=== PATIENT | female | born 1980 | race African-American/Black ===

== ENCOUNTER 2016-11-05 21:57 | Emergency (ER) | payer MEDICAID ==
[2016-11-06 01:14] LABS: APPEARANCE CLEAR (CLEAR); BILIRUBIN NEGATIVE (NEGATIVE); COLOR YELLOW (YELLOW); GLUCOSE NEGATIVE (NEGATIVE); KETONE NEGATIVE (NEGATIVE); LEUKOCYTE ESTERASE NEGATIVE (NEGATIVE); NITRITE NEGATIVE (NEGATIVE); PROTEIN NEGATIVE (NEGATIVE); UROBILINOGEN NORMAL (NORMAL)
[2016-11-06 01:15] LABS: BACTERIA FEW /hpf (NONE SEEN); EPITHELIAL CELLS 0-5 /hpf (0-5); RED CELLS - URINE 0-5 /hpf (0-5); WHITE CELLS - URINE NSEEN /hpf (0-5)
== END 2016-11-06 01:56 | disposition home or self-care (01) ==
LOC: D.ER 21:57
PROVIDERS: Family Medicine
DX: T19.2XXA Foreign body in vulva and vagina, initial encounter (principal); X58.XXXA Exposure to other specified factors, initial encounter; Y93.89 Activity, other specified; Y92.019 Unspecified place in single-family (private) house as the place of occurrence of the external cause; K58.9 Irritable bowel syndrome, unspecified; K21.9 Gastro-esophageal reflux disease without esophagitis; I10 Essential (primary) hypertension; F17.200 Nicotine dependence, unspecified, uncomplicated

== ENCOUNTER 2017-08-07 23:10 | Emergency (ER) | payer MEDICAID ==
[~2017-08-07] VITALS: Ht 167.6 cm; Wt 86.4 kg
[2017-08-07 23:26] VITALS: Ht 167.6 cm; Wt 86.4 kg
[2017-08-07] MEDS ORDERED: VENTOLIN HFA18 GM INH (23:28)
[2017-08-07] MEDS ORDERED: PROTONIX40 MG PO (23:28)
[2017-08-07] MEDS ORDERED: PREVACID30 MG PO (23:28)
[2017-08-07] MEDS ORDERED: ZYLOPRIM100 MG PO (23:28)
[2017-08-08 00:14] LABS: APPEARANCE HAZY (CLEAR); COLOR YELLOW (YELLOW); SPECIFIC GRAVITY 1.005 (1.005-1.020)
[2017-08-08 00:15] LABS: BILIRUBIN NEGATIVE (NEGATIVE); GLUCOSE NEGATIVE (NEGATIVE); HCG URINE NEGATIVE (NEGATIVE); KETONE NEGATIVE (NEGATIVE); NITRITE NEGATIVE (NEGATIVE); PH 5.5 (5.0-6.0); PROTEIN NEGATIVE (NEGATIVE); UROBILINOGEN NORMAL (NORMAL)
[2017-08-08 00:17] LABS: BASOPHILS 1.5 % (0-2); EOSINOPHILS 5.2 % (0-7); HEMATOCRIT 32.1 % (36.0-48.0); IMMATURE GRANULOCYTES 0.3 % (0-5); LYMPHOCYTES 37.5 % (15-50); MCH 28.2 pg (26.0-34.0); MCHC 31.2 g/dL (31.0-37.0); MCV 90.7 fL (80.0-100.0); MEAN PLATELET VOLUME 9.5 fL (7.4-10.4); MONOCYTES 9.1 % (2-11); NEUTROPHILS 46.4 % (40-80); PLATELET COUNT 332 10x3/uL (130-400); RBC 3.54 10x6/uL (4.00-5.40); RDW 17.7 % (11.5-14.5); WBC 5.8 10x3/uL (4.8-10.8)
[2017-08-08 00:30] LABS: ALBUMIN 3.9 g/dL (3.4-5.0); ANION GAP 15.6 mmol/L (8-16); BILIRUBIN - TOTAL 0.17 mg/dL (0.2-1.3); CALCIUM 9.8 mg/dL (8.5-10.1); CARBON DIOXIDE 23.7 mmol/L (21.0-32.0); CREATININE - SERUM 0.9 mg/dL (0.6-1.3); POTASSIUM - SERUM 3.3 mmol/L (3.5-5.1)
[2017-08-08] MEDS ORDERED: ENULOSE10 G/15 ML PO (01:48)
[2017-08-08 01:57] VITALS: BP 140/88
[2017-08-11 14:09] LABS: CHLAMYDIA TRACHOMATIS, NAA Negative (Negative)
== END 2017-08-08 01:58 | disposition home or self-care (01) ==
LOC: D.ER 23:10
PROVIDERS: Family Medicine
DX: K59.00 Constipation, unspecified (principal); F17.200 Nicotine dependence, unspecified, uncomplicated

== ENCOUNTER 2019-06-25 13:42 | Outpatient (CLI) | payer MEDICAID ==
[2017-08-07 23:26] VITALS: BMI 30.7
[~2019-06-25 13:42] MED LIST: ENULOSE10 G/15 ML PO; PREVACID30 MG PO; PROTONIX40 MG PO; VENTOLIN HFA18 GM INH; ZYLOPRIM100 MG PO
--- NOTE | 2019-06-25 18:22 | NUR ---
[id number]-[id number] WITH PT TO LAB FOR CBC.
[2019-06-25 18:35] LABS: BASOPHILS 1.8 % (0-2); EOSINOPHILS 4.7 % (0-7); HEMATOCRIT 30.7 % (36.0-48.0); HEMOGLOBIN 8.6 g/dL (12-16); IMMATURE GRANULOCYTES 0.2 % (0-5); LYMPHOCYTES 33.4 % (15-50); MCH 22.6 pg (26.0-34.0); MCV 80.8 fL (80.0-100.0); MEAN PLATELET VOLUME 9.2 fL (7.4-10.4); NEUTROPHILS 50.9 % (40-80); PLATELET COUNT 367 10x3/uL (130-400); RDW 19.5 % (11.5-14.5); WBC 4.9 10x3/uL (4.8-10.8)
== END 2019-06-25 18:09 | disposition home or self-care (01) ==
LOC: D.OPS 13:42
PROVIDERS: ATTEND Family Medicine
DX: D64.9 Anemia, unspecified (principal)

== ENCOUNTER → 2019-09-11 08:00 | Outpatient (CLI) | payer OTHER ==
[~2019-09-11] VITALS: Ht 165.1 cm; Wt 77.7 kg
[~2019-09-11 08:00] MED LIST changes: +MOBIC7.5 MG PO; +NEURONTIN 300300 MG PO; +PERCOCET 7.5/321 TAB PO
[2019-09-18 09:21] LABS: BASOPHILS 4.3 % (0-2); EOSINOPHILS 6.9 % (0-7); HEMATOCRIT 24.8 % (36.0-48.0); LYMPHOCYTES 29.5 % (15-50); MCH 23.5 pg (26.0-34.0); MCHC 27.8 g/dL (31.0-37.0); MCV 84.6 fL (80.0-100.0); MEAN PLATELET VOLUME 9.2 fL (7.4-10.4); MONOCYTES 11.9 % (2-11); NEUTROPHILS 47.4 % (40-80); PLATELET COUNT 345 10x3/uL (130-400); RBC 2.93 10x6/uL (4.00-5.40); RDW 18.8 % (11.5-14.5); WBC 4.2 10x3/uL (4.8-10.8)
[2019-09-18 09:25] LABS: HEMOGLOBIN 6.9 g/dL (12-16); UDS - AMPHET NEGATIVE QUAL (NEGATIVE); UDS - BARB NEGATIVE QUAL (NEGATIVE); UDS - BENZO NEGATIVE QUAL (NEGATIVE); UDS - COCAINE NEGATIVE QUAL (NEGATIVE); UDS - OPIATE NEGATIVE QUAL (NEGATIVE); UDS - PCP NEGATIVE QUAL (NEGATIVE); UDS - THC NEGATIVE QUAL (NEGATIVE)
[2019-09-18 09:32] LABS: CALC OSMOLALITY 278 mosm/kg (275-300); CALCIUM 8.6 mg/dL (8.5-10.1); CARBON DIOXIDE 26.3 mmol/L (21.0-32.0); CHLORIDE - SERUM 105 mmol/L (98-107); CREATININE - SERUM 0.7 mg/dL (0.6-1.3); GLUCOSE 93 mg/dL (74-106); POTASSIUM - SERUM 3.4 mmol/L (3.5-5.1); SODIUM 141 mmol/L (136-145); UREA NITROGEN 6 mg/dL (7-18); eGFR NON AFRICAN AMERICAN > 90 mL/min (90-120)
[2019-09-21 00:18] VITALS: BP 132/83; BMI 28.5
[2019-09-21 10:39] VITALS: Ht 165.1 cm; Wt 77.7 kg
== END | disposition home or self-care (01) ==
LOC: D.LAB 08:00 → D.OPS 09-14 07:00 → D.PAN 09-14 07:00 → D.OPS 09-14 09:00 → D.LD 09-20 20:11 → D.OPS 09-20 20:11 → EDSTATUS 09-21 07:00 → D.OPS 09-21 07:00
PROVIDERS: ATTEND Obstetrics & Gynecology
DX: Z11.59 Encounter for screening for other viral diseases (principal); N93.9 Abnormal uterine and vaginal bleeding, unspecified; D25.9 Leiomyoma of uterus, unspecified

== ENCOUNTER 2019-09-20 20:35 | Day surgery (SDC) | payer OTHER ==
[~2019-09-20] VITALS: Ht 165.1 cm; Wt 77.6 kg
--- NOTE | ~2019-09-20 | OP ---
PATIENT NAME: GIOVANNI PEÑA MEDICAL RECORD: [id number] :76 LOCATION:[facility] ADMISSION DATE: SURGEON: FERCHO BACK MD DATE OF OPERATION: 09/21/2019 PREOPERATIVE DIAGNOSES: 1. Abnormal uterine bleeding. 2. Anemia. 3. Fibroids. POSTOPERATIVE DIAGNOSES: 1. Abnormal uterine bleeding. 2. Anemia. 3. Fibroids. PROCEDURE PERFORMED: 1. Diagnostic laparoscopy. 2. Total laparoscopic hysterectomy. 3. Vaginal morcellation of uterus. 4. Cystoscopy. FINDINGS: Uterus is enlarged (greater than 500 grams). Multiple fibroids were encountered and the largest was approximately 5-6 cm along the fundus. The abdominal anatomy that was visualized appears unremarkable. Tubes were interrupted bilaterally and both ovaries were unremarkable. Vaginal vault is unremarkable. At the time of cystoscopy, the vaginal mucosa was intact with good efflux of urine from both ureters. There were no fronds at the UV junction and no exudate was massaged from periurethral glands. SPECIMENS REMOVED: Uterus with cervix morcellated bilateral tubes. SPECIMEN DISPOSITION: Pathology. ESTIMATED BLOOD LOSS: 300 cc. FLUIDS: 1200 cc lactated Ringer's. URINE OUTPUT: 130 cc of clear urine. COMPLICATIONS: None. DRAINS: Christie to gravity. INDICATIONS: The patient is a 38-year-old female with menorrhagia to anemia. The patient has received packed red blood cells preoperatively due to the extreme anemia. The patient is consented for diagnostic laparoscopy, total laparoscopic hysterectomy, and possible open hysterectomy. DESCRIPTION OF PROCEDURE: After informed consent was assured, the patient was taken to the operating room, anesthetic was obtained. The patient is now prepped and draped and uterine manipulator placed. Attention was directed to the abdomen where an incision was made to accommodate a 5-mm trocar at the infraumbilical incision site. Pneumoperitoneum was developed. The patient is in steep Trendelenburg position. Accessory ports were now placed in the right and left lower quadrant. All sites were injected with Marcaine prior to the OPERATIVE REPORT [id number] GIOVANNI PEÑA incision. Through the right port, grasper was inserted and the left tube or the left cornual region is elevated. Using the [employer] coagulation cutter, the uteroovarian ligament and remnant of the tube was compressed, coagulated, and . This dissection was carried out over the round ligament and anterior leaf of the broad ligament was opened and the bladder flap developed to the midline. Posterior leaf of the bladder flap was opened and the vessels on the left side skeletonized. Attention was now directed to the right side. The right cornual region was elevated and again the uterine ovarian ligament was compressed, coagulated, and . The dissection was carried down around the fibroid that was present on the right side. The round ligament was opened and the broad ligament was incised and the bladder flap now fully developed. The posterior leaf of the broad ligament is now dissected free of the vascular bundle of the right. At the level of the internal os, the vessels were compressed, coagulated, and . The dissection continued on the left side where the left vessels were now compressed, coagulated, and . The uterus was removed from the vaginal cuff; starting the dissection at the 10 o'clock position and concluding at the 2 and then carried out from the 10 to 6. The dissection concludes from the right, going from the 2 to the 6 o'clock position. The cervix was pulled into the vagina and the legs positioned. Using a weighted speculum and a [place] retractor, the cervix was visualized. Placing [place] tenaculums on the cervix and placing them on traction and using a wide scalpel on a long handle, the uterus is now cord. The cervix is removed with a core of uterine tissue. The uterus continues to be morcellated until the sidewalls were collapsed to the point where it could be removed from the vaginal cuff. Once this was performed, a vaginal packing was placed. A stitch is now passed from the posterior cuff into the pelvis to incorporate the left uterosacral ligament across the peritoneum to the right uterosacral ligament and now it is passed back out through the posterior cuff. This was tagged to be tied last. Cuff is now closed in anterior to posterior fashion with a running stitch of Vicryl. Once the cuff was closed, the aforementioned tagged stitches are secured in this way plicating the uterosacral ligaments to the vaginal cuff. Pneumoperitoneum has been reestablished and visualization of the operative field reveals adequate hemostasis. The pelvis was irrigated and Jose placed over the operative site. Pneumoperitoneum was released. The trocars were removed and all skin sites closed with a subcuticular stitch. The legs were repositioned for the cystoscopy. Using a 70-degree cystoscope and using water as distention medium, the urethra is cannulized and visualized. The UV junction is also noted to be unremarkable. The vaginal mucosa is intact and both ureteral orifices are identified. Urine efflux was noted from both right and left ureter at the close of this procedure. Sponge, lap, needle counts were correct times 2. The distention media is released and Christie catheter restarted. The patient was awakened and went to the recovery area in stable condition. TRANSINT:[id number] Voice Confirmation ID: [id number] DOCUMENT ID: [id number] FERCHO BACK MD CC: [id number] DICTATION DATE: 09/21/19925 FINANCIAL AID DIRECTOR: [id number] [facility] 09/21/19 [facility] [address] [place] [address]
--- NOTE | 2019-09-20 20:30 | NUR ---
PT TO LABOR AND DELIVERY FOR BLOOD TRANSFUSION. Panchito CONNOR, RN
[~2019-09-20 20:35] MED LIST changes: -MOBIC7.5 MG PO; -NEURONTIN 300300 MG PO; -PERCOCET 7.5/321 TAB PO
--- NOTE | 2019-09-20 20:50 | NUR ---
18 G IV STARTED TO THE RT FOREARM X1 ATTEMPT. BLOOD DRAWN AND TO VACUTAINER AT THIS TIME. Panchito CONNOR RN
--- NOTE | 2019-09-20 21:50 | NUR ---
PT RESTING IN BED AT THIS TIME. Panchito CONNOR RN
[2019-09-20 22:30] VITALS: BP 154/94
--- NOTE | 2019-09-20 22:45 | NUR ---
FIRST UNIT OF BLOOD STARTED AT THIS TIME. Panchito CONNOR RN
[2019-09-20 23:00] VITALS: BP 157/94
--- NOTE | 2019-09-20 23:05 | NUR ---
VS CHECK. PT SITTING UP IN BED WATCHING TV. NO S/S OF DISTRESS ARE NOTED. RR IS WNL'S RESP ARE UNLABORED, PT DENIES ANY COMPLAINTS.
[2019-09-20 23:17] VITALS: BP 145/86
[2019-09-21] VITALS (9 sets, daily range): BP systolic 129–159; BP diastolic 85–96; Ht 165.1 cm; Wt 77.6 kg
--- NOTE | 2019-09-21 00:15 | NUR ---
PT RESTING AT THIS TIME. Panchito CONNOR RN
--- NOTE | 2019-09-21 01:00 | NUR ---
FIRST UNIT OF BLOOD COMPLETED. Panchito CONNOR RN
--- NOTE | 2019-09-21 01:25 | NUR ---
SECOND UNIT OF BLOOD UP AT THIS TIME. Panchito CONNOR RN
--- NOTE | 2019-09-21 03:20 | NUR ---
SECOND UNIT OF BLOOD COMPLETE. PT TOLERATED WELL. Panchito CONNOR RN
--- NOTE | 2019-09-21 04:00 | NUR ---
COVERED PIV FOR PT TO SHOWER. HIBICLENS GIVEN TO PT WITH INSTRUCTIONS. PT UP TO SHOWER AT THIS TIME.
--- NOTE | 2019-09-21 04:27 | NUR ---
TO ROOM TO ANSWER CALL LIGHT. REMOVED COVER FROM PIV AFTER SHOWER. PT REQUEST TOOTHBRUSH, TOOTHPASTE AND A HAIR BRUSH, ALL TAKEN TO PT, SHE DENIES ANY FURTHER NEEDS.
[2019-09-21 07:00] LABS: CALC OSMOLALITY 273 mosm/kg (275-300); CALCIUM 9.1 mg/dL (8.5-10.1); CARBON DIOXIDE 24.9 mmol/L (21.0-32.0); CHLORIDE - SERUM 103 mmol/L (98-107); CREATININE - SERUM 0.7 mg/dL (0.6-1.3); GLUCOSE 84 mg/dL (74-106); POTASSIUM - SERUM 3.5 mmol/L (3.5-5.1); SODIUM 138 mmol/L (136-145); UREA NITROGEN 9 mg/dL (7-18); eGFR NON AFRICAN AMERICAN > 90 mL/min (90-120)
[2019-09-21 07:22] LABS: BASOPHILS 1.6 % (0-2); EOSINOPHILS 3.8 % (0-7); HEMATOCRIT 32.5 % (36.0-48.0); HEMOGLOBIN 9.6 g/dL (12-16); IMMATURE GRANULOCYTES 0.4 % (0-5); LYMPHOCYTES 17.6 % (15-50); MCH 25.1 pg (26.0-34.0); MCHC 29.5 g/dL (31.0-37.0); MCV 84.9 fL (80.0-100.0); MONOCYTES 10.3 % (2-11); NEUTROPHILS 66.3 % (40-80); PLATELET COUNT 288 10x3/uL (130-400); RBC 3.83 10x6/uL (4.00-5.40); RDW 17.7 % (11.5-14.5); WBC 5.6 10x3/uL (4.8-10.8)
--- NOTE | 2019-09-21 10:10 | NUR ---
RECEIVED PT FROM PACU VIA BED ACCOMPANIED BY PACU STAFF. PT DROWSY, BUT AWAKENS TO VOICE AND IS ORIENTED X3. IV INFUSING TO GRAVITY; PLACED ON IVP AT 150CC/HR. 3 ABDOMENAL INCISIONS CDI WITH DERMABOND. SPANN CATHETER DRAINING LIGHT GREEN, CLEAR URINE TO GRAVITY. BREATH SOUNDS EQUAL WITH WHEEZES NOTED BILATERALLY. HEART RATE REGULAR. BOWEL SOUNDS PRESENT BUT HYPOACTIVE X4 QUADS. PT. MOTHER AT BEDSIDE. PT REQUESTS MEDICATION FOR ABDOMENAL PAIN.
--- NOTE | 2019-09-21 11:00 | NUR ---
O2 SAT 100% WITH 02 @ 2L/MIN VIA N/C. 02 D/C'D. CONT TO MONITOR O2 SAT ON RA. PT REMAINS SLEEPY BUT AROUSES EASILY TO VERBAL CUES.
--- NOTE | 2019-09-21 11:40 | NUR ---
PT REQUESTS TO GO TO BATHROOM TO VOID. ASSISTED PT TO STAND AT BEDSIDE. NO DIZZINESS/LIGHTEHEADEDNESS; TOOK A FEW STEPS WITHOUT DIFFICULTY. ASSISTED PT BACK TO BED; SPANN CATH D/C'D. ASSISTED PT TO AMBULATE TO BR; VOIDED JUST A FEW CC CLEAR URINE IN HAT. ASSISTED BACK TO BED. JUICE AND ICE GIVEN.
--- NOTE | 2019-09-21 12:15 | NUR ---
PT SITTING UP IN BED ON PHONE. AWAKE AND ALERT. REGULAR LUNCH TRAY GIVEN. NO NEEDS VOICED AT THIS TIME.
--- NOTE | 2019-09-21 13:06 | NUR ---
PT SITTING UP IN BED READING NEWSPAPER. TOLERATED REGULAR LUNCH WITHOUT DIFFICULTY. MOTHER AT BEDSIDE. IV CONTINUES AT 150CC/HR VIA IVP. NO NEEDS OR CONCERNS AT THIS TIME.
--- NOTE | 2019-09-21 14:27 | NUR ---
ASSISTED PT UP TO BATHROOM TO VOID. UNABLE TO VOID AT THIS TIME.
--- NOTE | 2019-09-21 16:16 | NUR ---
BLADDER SCANNED--147CC ONE SCAN; 162CC SECOND SCAN TO VERIFY. RESULTS CALLED TO DR. BACK. ORDERS RECEIVED.
--- NOTE | 2019-09-21 16:40 | NUR ---
DR. BACK CALLED TO UNIT FOR PT.STATUS UPDATE. REPORTED PT HAS NOT VOIDED SINCE SPANN D/C DESPITE CONTINUED IV FLUIDS WELL PO FLUIDS. ORDER RECEIVED TO SCAN BLADDER AND CALL RESULTS.
--- NOTE | 2019-09-21 17:00 | NUR ---
IV BOLUS INFUSING. PT SITTING UP IN BED, DINNER TRAY SERVED. MOTHER REMAINS AT BEDSIDE.
--- NOTE | 2019-09-21 17:45 | NUR ---
pt calls out [employer] business objects consultant light requesting to get up to the bathroom, scd's removed, and iv saline locked. gait slow and steady, pt voids dark blue green urine, 250 ml's noted. pt then back to bed, scd's placed back on, and iv reconnected to ivf's and infusing at 50 ml/hr. pt has regular supper tray, served. denies all other needs. srup x2, call light and phone within reach.
--- NOTE | 2019-09-21 17:54 | NUR ---
CALL TO DR. BACK. MESSAGE LEFT ON VOICEMAIL.
--- NOTE | 2019-09-21 19:15 | NUR ---
CALLED TO FLOOR AND NOTIFIED OF PT VOIDING 250 CC CONCENTRATED URINE. ORDERS RECEIVED FOR DISCHARGE.
[2019-09-21] MEDS ORDERED: PERCOCET 7.5/321 TAB PO (19:23)
[2019-09-21] MEDS ORDERED: MOBIC7.5 MG PO (19:23)
[2019-09-21] MEDS ORDERED: NEURONTIN 300300 MG PO (19:24)
--- NOTE | 2019-09-21 19:39 | NUR ---
PRESCRIPTIONS REVIEWED AND GIVEN TO PT, DISCHARGE INSTRUCTIONS GIVEN AND EXPLAINED. PT VOICED UNDERSTANDING. ENCOURAGED PT TO PUSH WATER THIS EVENING. AND TO TAKE HER BP AT HOME GIVEN. PT VOICED UNDERSTANING. AWAITING HER MOTHER FOR RIDE HOME.
--- NOTE | 2019-09-21 19:50 | NUR ---
PT LEFT IN WC WITH ESCORT OF HER MOTHER AND MYSELF
== END 2019-09-21 19:50 | disposition home or self-care (01) ==
LOC: D.LDO 20:35 → D.LD 20:35 → D.LDO 20:38 → D.LD 20:38 → EDSTATUS 09-21 07:00 → D.LD 09-21 19:50
PROVIDERS: Anesthesiology; ATTEND Obstetrics & Gynecology
DX: N93.9 Abnormal uterine and vaginal bleeding, unspecified (principal); D64.9 Anemia, unspecified; D21.9 Benign neoplasm of connective and other soft tissue, unspecified